=== PATIENT | female | born 1995 | race African-American/Black ===

== ENCOUNTER 2017-04-16 15:40 | Emergency (ER) | payer MEDICAID ==
[~2017-04-16] VITALS: Ht 167.6 cm; Wt 68.5 kg
[2017-04-16 15:46] VITALS: BP 125/84
== END 2017-04-16 18:46 | disposition left against medical advice (07) ==
LOC: ER 17:00
DX: R06.02 Shortness of breath (principal); Z53.21 Procedure and treatment not carried out due to patient leaving prior to being seen by health care provider

== ENCOUNTER 2018-01-12 12:01 | Emergency (ER) | payer MEDICAID ==
[~2018-01-12] VITALS: Ht 170.2 cm; Wt 67.0 kg
[2018-01-12] MEDS ORDERED: DIPHENHYDRAMINE 50MG/ML VIAL IV ONE (14:30)
[2018-01-12] MEDS ORDERED: ZIPRASIDONE MESYLATE 20MG/VIAL IM ONE (14:30)
[2018-01-12] MEDS ORDERED: HALOPERIDOL LACTATE 5MG/ML VIAL IM ONE (14:30)
[2018-01-12] MEDS ORDERED: LORAZEPAM 2MG/ML CPJ IV ONE (14:45)
[2018-01-12 16:33] LABS: BASOPHILS % 0.2 % (0.0-2.0); EOSINOPHILS % 0.4 % (0.0-5.0); HEMATOCRIT. 33.2 % (36.0-48.0); HEMOGLOBIN. 11.5 g/dL (12.0-16.0); LYMPHOCYTES % 10.8 % (20.0-50.0); MEAN CORPUSCULAR HEMOGLOBIN 29.7 pg (28.0-32.0); MEAN CORPUSCULAR VOLUME 85.7 fL (81.0-99.0); MEAN PLATELET VOLUME 8.1 fl (7.4-10.4); MONOCYTES % 6.7 % (2.0-8.0); NEUTROPHILS % 81.9 % (40.0-76.0); PLATELET 222 x1000/uL (130-400); RED BLOOD CELL COUNT 3.87 mill/uL (4.2-5.4)
[2018-01-12 16:37] LABS: CHLORIDE 105 mEq/L (98-107)
[2018-01-12 16:41] LABS: ETHANOL BLOOD < 10 mg/dL
[2018-01-12 17:01] LABS: B-HCG QUANTITATIVE 25818 mIU/mL (<3)
[2018-01-12 17:09] LABS: CLARITY URINE CLOUDY (CLEAR); COLOR URINE YELLOW (YELLOW); KETONES URINE 2+ (NEGATIVE); LEUKOCYTE ESTERASE URINE 1+ (NEGATIVE); NITRITE URINE NEGATIVE (NEGATIVE); OCCULT BLOOD URINE NEGATIVE (NEGATIVE); PH URINE 6.5 (4.5-8.0); PROTEIN URINE TRACE (NEGATIVE); SPECIFIC GRAVITY URINE 1.024 (1.005-1.030); UROBILINOGEN URINE 0.2 E.U./dL (0.2-1.0)
[2018-01-12 17:16] LABS: HEPATITIS B SURFACE ANTIGEN NEGATIVE
[2018-01-12 17:25] LABS: *COCAINE SCREEN URINE NEGATIVE (NEGATIVE); METHADONE URINE SCREEN NEGATIVE (NEGATIVE); OPIATES URINE SCREEN NEGATIVE (NEGATIVE)
[2018-01-12 17:27] LABS: *AMPHETAMINES SCREEN URINE NEGATIVE (NEGATIVE); *BARBITURATES SCREEN URINE NEGATIVE (NEGATIVE); *BENZODIAZEPINES SCREEN URINE NEGATIVE (NEGATIVE); PHENCYCLIDINE URINE SCREEN NEGATIVE (NEGATIVE)
[2018-01-12 17:44] LABS: HEPATITIS B CORE AB IGM NEGATIVE
[2018-01-12 17:46] LABS: HEPATITIS A AB IGM NEGATIVE (NEGATIVE)
[2018-01-12 17:51] LABS: CANNABINOID URINE SCREEN PRESUMTIVE POSITIVE (NEGATIVE)
[2018-01-12] MEDS ORDERED: NITROFURANTOIN 100MG M/M CAPSULE PO ONE (19:45)
[2018-01-13 02:00] VITALS: BP 101/60
[2018-01-14 09:06] LABS: HIV SCREEN 4G Non Reactive (Non Reactive)
== END 2018-01-13 03:05 | disposition left against medical advice (07) ==
LOC: ER 12:01
DX: O99.342 Other mental disorders complicating pregnancy, second trimester (principal); O23.42 Unspecified infection of urinary tract in pregnancy, second trimester; F98.9 Unspecified behavioral and emotional disorders with onset usually occurring in childhood and adolescence; F20.9 Schizophrenia, unspecified; D64.9 Anemia, unspecified; E87.6 Hypokalemia; D72.810 Lymphocytopenia; E88.09 Other disorders of plasma-protein metabolism, not elsewhere classified; N17.0 Acute kidney failure with tubular necrosis; R74.0 Nonspecific elevation of levels of transaminase and lactic acid dehydrogenase [LDH]; R44.0 Auditory hallucinations; D72.828 Other elevated white blood cell count; Z3A.16 16 weeks gestation of pregnancy; F12.10 Cannabis abuse, uncomplicated
CPT/HCPCS: 36415; 76815; 80053; 80305; 80307; 81003; 81025; 84702; 85025; 87389; 99285; G0482; 86705; 86709; 86803; 87340